=== PATIENT | male | born 1985 | race Caucasian/White ===

== ENCOUNTER 2021-12-18 16:28 | Emergency (ER) | payer OTHER ==
[2021-12-18 17:34] LABS: BASOPHIL 0.6 % (0-2); EOSINOPHIL 1.5 % (0-5); HCT 43.8 % (42.0-52.0); HGB 14.5 g/dl (13.2-18.0); LYMPHOCYTE 21.9 % (15-48); MCH 29.3 pg (25.0-31.0); MCHC 33.1 g/dL (32.0-36.0); MCV 88.5 fL (78.0-100.0); MONOCYTE 7.5 % (0-12); MPV 10.5 fL (6.0-9.5); NEUTROPHIL 68.2 % (41-80); NRBC 0; PLT 226 K/uL (150-400); RBC 4.95 M/uL (4.70-6.00); RDW 12.8 % (11.5-14.0); WBC 7.9 K/uL (4.0-10.5)
[2021-12-18 17:38] LABS: BARBITURATES NEGATIVE (NEGATIVE); ECSTASY (MDMA) NEGATIVE (NEGATIVE); MARIJUANA (THC) NEGATIVE (NEGATIVE); METHADONE NEGATIVE (NEGATIVE); OPIATES NEGATIVE (NEGATIVE)
[2021-12-18 17:39] LABS: AMPHETAMINES NEGATIVE (NEGATIVE); OXYCODONE NEGATIVE (NEGATIVE)
[2021-12-18 17:53] LABS: ALBUMIN 4.3 g/dL (3.4-5.0); ALKALINE PHOSHATASE 86 U/L (46-116); ALT 38 U/L (16-63); AST 18 U/L (15-37); BILIRUBIN - TOTAL 0.6 mg/dL (0.2-1.0); BUN 15 mg/dL (7-18); BUN/CREAT RATIO (CALC) 14.6 RATIO; CHLORIDE 103 mmol/L (98-107); CO2 (BICARBONATE) 26 mmol/L (21-32); CREATININE 1.03 mg/dL (0.67-1.17); GLOBULIN (CALCULATION) 3.4 g/dL; GLUCOSE 114 mg/dL (74-106); TOTAL PROTEIN 7.7 g/dL (6.4-8.2)
[2021-12-18 17:56] LABS: ACETAMINOPHEN (TYLENOL) < 2.0 ug/mL (10.0-30.0)
[2021-12-18 19:04] LABS: INFLUENZA A NAA NEGATIVE (NEGATIVE)
[2021-12-18 19:05] LABS: CORONAVIRUS 2019 SARS-COV-2 POSITIVE (NEGATIVE)
== END 2021-12-18 21:31 ==
LOC: FER 16:28
PROVIDERS: Physician Assistant
DX: R45.851 Suicidal ideations (principal); R45.850 Homicidal ideations; U07.1 COVID-19; Z91.51 Personal history of suicidal behavior; Z88.8 Allergy status to other drugs, medicaments and biological substances; Z91.048 Other nonmedicinal substance allergy status
CPT/HCPCS: 36415; 80053; 80305; 85025; 99285; G0480; U0002